=== PATIENT | female | born 1980 | race Caucasian/White ===

== ENCOUNTER → 2024-09-11 | Outpatient (CLI) | payer OTHER, SELFPAY ==
--- NOTE | 2024-09-11 12:53 | RAD_ITS ---
EXAM: XR Lumbosacral Spine, 2 or 3 Views CLINICAL INDICATION: BACK PAIN TECHNIQUE: Frontal and lateral views of the lumbar spine and sacrum. COMPARISON: No relevant prior studies available. FINDINGS: VERTEBRAE: Mild endplate degenerative changes of L3-S1. Normal alignment. No acute fracture. SACRUM/COCCYX: Unremarkable as visualized. No acute fracture. DISC SPACES: No acute findings. No significant narrowing. SOFT TISSUES: Unremarkable. RAD/Lumbar Spine 2 or 3 Views IMPRESSION: No acute fracture. Reading Location: [facility]
== END | disposition home or self-care (01) ==
LOC: MTRAD 12:53
PROVIDERS: Referring Provider Physician Assistant; Visit Provider Physician Assistant
DX: M54.9 Dorsalgia, unspecified (principal)
CPT/HCPCS: 72100

== ENCOUNTER → 2024-10-05 | Outpatient (CLI) | payer OTHER, SELFPAY ==
--- NOTE | 2024-10-05 10:10 | BI_ITS ---
EXAM: SCRN MAMM (CAD)W/KVNG BILAT DATE: 10/05/2024 CLINICAL HISTORY: F, Age 44 y/o , SCREENING BREAST CANCER RISK ASSESSMENT: Not assessed. TECHNIQUE: Bilateral screening digital breast tomosynthesis with 2D and 3D images. Computer aided detection. COMPARISON: Baseline examination. FINDINGS: TISSUE DENSITY: The breast tissue is heterogenously dense, which may obscure small masses. Bilateral Breast Mammographic Findings: No significant masses, calcifications or other abnormalities are identified. BI/SCRN MAMM (CAD)W/KVNG BILAT IMPRESSION: Right Breast: BIRADS 1 NEGATIVE. Left Breast: BIRADS 1 NEGATIVE. OVERALL FINAL ASSESSMENT: BIRADS 1 NEGATIVE RECOMMENDATION: Routine annual follow-up in 1 Year A letter with findings and recommendations will be mailed to the patient. Reading Location: [place] [id number]
[2024-10-05 10:21] LABS: Absolute Lymphocyte Count 1.53 X10^3/uL (0.83-4.51); Absolute Neutrophil Count 3.6 X10^3/uL (2.0-7.7); Basophil# 0.04 X10^3/uL; Basophil% 0.7 % (0-1); Eosinophil# 0.17 X10^3/uL; Eosinophils% 2.9 % (0-5); Hematocrit 41.4 % (37-47); Hemoglobin 14.2 g/dL (12.0-15.0); Lymphocyte # 1.53 X10^3/ul (0.83-4.51); Lymphocyte % 25.7 % (19-41); Mean Corp Hgb Conc 34.3 g/dL (32-36); Mean Corpuscular Hgb 34.5 pg (27.0-32.0); Mean Corpuscular Volume 100.5 fL (81-99); Mean Platelet Vol. 9.8 fl (6.2-12.0); Monocyte# 0.55 X10^3/uL; Monocyte% 9.2 % (0-10); NRBC Flagged by Analyzer 0 % (0-5); Neutrophil # 3.62 X10^3/uL (2.7-7.7); Neutrophil % 60.8 % (47-70); Platelet Count 198 K/mm3 (150-450); RBC Distribution Width SD 44.6 fl (35.1-43.9); Red Blood Count 4.12 M/mm3 (4.2-5.4)
[2024-10-05 10:43] LABS: ALB/GLOB Ratio 1.9 RATIO (0.9-2.4); AST(SGOT) 26 U/L (<=31); Alanine Aminotransfer ALT/SGPT 24 U/L (<=34); Albumin, Serum 4.3 g/dL (3.5-5.0); Alkaline Phosphatase 42 U/L (35-104); Anion Gap 13 (5-15); BUN 13 mg/dL (4-19); Calcium,Total 9.2 mg/dL (7.6-11.0); Carbon Dioxide 20.8 mmol/L (21.0-32.0); Chloride 105 mmol/L (98-108); Cholesterol 183 mg/dL (<=200); Creatinine, Serum 0.64 mg/dL (0.70-1.20); EST Glomerular Filtration Rate 111 (>60); Globulin 2.2 g/dL (2.2-4.2); Glucose 82 mg/dL (70-99); High Density Lipoprotein 63 mg/dL; Low Density Lipoprotein Calc. 99 mg/dL; Potassium 4.1 mmol/L (3.3-5.1); Protein, Total 6.5 g/dL (5.9-8.4); Sodium Level 139 mmol/L (133-145); Total Bilirubin 0.52 mg/dL (0.00-1.30); Triglycerides 107 mg/dL; Very Low Density Lipoprotein 21 mg/dL (5-40)
== END | disposition home or self-care (01) ==
LOC: OPBI 10:08
PROVIDERS: PCP Nurse Practitioner Family; Referring Provider Nurse Practitioner Family; Visit Provider Nurse Practitioner Family
DX: Z00.01 Encounter for general adult medical examination with abnormal findings (principal); Z12.31 Encounter for screening mammogram for malignant neoplasm of breast
CPT/HCPCS: 36415; 77063; 77067; 80053; 80061; 85025

== ENCOUNTER 2024-10-16 18:30 | Outpatient (RCR) | payer OTHER, SELFPAY ==
--- NOTE | 2024-09-18 19:48 | HP.PTEVAL ---
Patient's Visit Information Visit Information Visit Information: GARY MARQUIS is a 44 year old F referred to Physical Therapy by NAVJOT Peterson with a diagnosis of LUMBAR RADICULOPATHY. Date of Evaluation: 09/18/24 Physical Therapist: Johnson Douglas, PT, Cert MDT, OCS Visit Plan Frequency: 2x /Week Duration: 4 Weeks Plan: PT INTERVENTIONS SAM EX'S,PROGRESSION DLS ,POSTURAL EX'S ,ACTIVITY MODIFICATION ,MODALITIES AND MANUAL THERAPY Subjective Subjective: This 44 y/o female presents to physical therapy with lumbar radiculopathy. Patient has symptoms since January woke up with pain. Patient symptoms past week ,thus seen DR. Patient symptoms worse in leg. Thus seen DR recommended PT and x-rays showed Mild endplate degenerative changes of L3-S1. Medication prednisone and muscle relaxers. Patient symptoms RLS radicular symptoms in hamstrings ,calf and foot. Intermittent paresthesia/tingling in leg. Aggravating sitting ,bending,lifting .,standing WB with walking. Symptoms described as pinching shooting pain. Alleviating factors medication. Coughing/sneezing -. Pain affects sleeping . No prior treatment. Patient condition affects QOL and job demands. Patient goals to decrease symptoms. SOCIAL: SINGLE VOCATION: [employer] Pain Right Back: Pain Intensity (Out of 10): 2 Pain Intensity Range: 10 Right Lower Extremity: Pain Intensity (Out of 10): 2 Pain Intensity Range: 10 Comment: calf foot Objective Objective: POSTURE: mild forward posture GAIT: reciprocal pattern slight stance RLE NEURO: c/o paresthesia/tingling in calf ,reflexes L3-4,L4-5,L5- S1 1/3 PALAPTION: unremarkable FLEXABILITY: hamstrings min tight MMT: quads/hams 4/5 ,hip flexion 4/5 ,ankle 4/5 LUMBAR ROM: flexion min/mod loss extension min/mod loss ,side glides min loss Special Tests L/S Slump test left side: Negative L/S Slump test right side: Positive L/S Left Straight Leg Raise: Positive L/S Right Straight Leg Raise: Negative Lumbar Standing: Flexion - Mechanical Response: No effect Lumbar Standing: Flexion - Symptoms During Testing: Increases Lumbar Standing: Flexion - Symptoms After Testing: Worse Lumbar Standing: Extension - Mechanical Response: No effect Lumbar Standing: Extension - Symptoms During Testing: Centralizing Lumbar Standing: Extension - Symptoms After Testing: No better Lumbar Standing: Right Side Glides - Mechanical Response: No effect Lumbar Standing: Right Side Ryder - Symptoms During Testing: No effect Lumbar Standing: Right Side Ryder - Symptoms After Testing: No effect Lumbar Standing: Left Side Ryder - Mechanical Response: No effect Lumbar Standing: Left Side Ryder - Symptoms During Testing: No effect Lumbar Standing: Left Side Ryder - Symptoms After Testing: No effect Lumbar Lying: Flexion - Mechanical Response: No effect Lumbar Lying: Flexion - Symptoms During Testing: Increases Lumbar Lying: Flexion - Symptoms After Testing: Worse Lumbar Lying: Extension - Mechanical Response: No effect Lumbar Lying: Extension - Symptoms During Testing: Centralizing Lumbar Lying: Extension - Symptoms After Testing: Better Balance/Special Test Scores Oswestry Low Back Score: 25 Goals Goal 1:: Patient to be I with HEP for back Goal Time Frame: 4-6 Weeks Goal 2:: Patient to improve lumbar ROM for function of recovery for job demands Goal Time Frame: 4-6 Weeks Goal 3:: Patient to back oswestry score by 4 points to improve QOL and function Goal Time Frame: 4-6 Weeks Goal 4:: Patient to demonstrate 70% improvement with less pain and improved function Goal Time Frame: 4-6 Weeks Rehabilitation Potential Physical Therapy Diagnosis: This patient has derangement below knee with symptoms worse positioning and motion testing increases with sitting and flexion better with extension thus benefit from skilled PT Rehabilitation Potential: Good Anticipated Interventions Patient/Client Instruction: Educate patient on: Condition and Plan of Care For the Purpose of:: To decrease pain, To increase ROM, To improve muscle performance and motor function, To improve ability to perform ADL's, To increase tolerance to activity/condition/position, To improve ability of physical actions for home/community/work/leisure, To improve health of tissue, To decrease soft tissue restriction, To increase flexibility/ROM and To improve tolerance to ADL's Therapeutic Exercise to Include: Strength training, Body mechanics, Postural training, Flexibilty training, Dynamic Lumbar Stabilization and Sam Exercises For the Purpose of:: To decrease pain, To increase ROM, To improve muscle performance and motor function, To improve ability to perform ADL's, To increase tolerance to activity/condition/position, To improve ability of physical actions for home/community/work/leisure, To improve health of tissue, To decrease soft tissue restriction, To improve endurance and To improve tolerance to ADL's Manual Therapy Techniques to Include: Mobilization For the Purpose of:: To decrease pain, To increase ROM, To improve muscle performance and motor function, To improve ability to perform ADL's, To improve health of tissue and To decrease soft tissue restriction TENS: Yes IF ES: Yes Thermo therapy (hot pack): Yes Ultrasound (thermal/non thermal): Yes For the Purpose of:: To decrease pain, To increase ROM, To improve health of tissue and To decrease soft tissue restriction Text: Thank you for the opportunity to evaluate your patient. For Medicare and Medicare HMO plans, please review the plan of care and approve it. It will need to be FAXED BACK to us at [phone] for Medicare purposes. For Medicare only, by signing this I certify the plan of care. Please let me know if there are questions or concerns regarding this plan of care. Physician Signature: Date:
--- NOTE | 2025-01-31 08:55 | HP.PTDCSUM ---
Discharge Summary D/C summary: It has been my pleasure to treat GARY MARQUIS referred by NAVJOT Peterson, with the diagnosis of LUMBAR RADICULOPATHY for a total of 9 visit(s). Discharge Date: Please see the following information for a summary of their discharge status. Subjective Subjective: Symptoms better in leg but centralizing in back with a pitch Still on medication Naproxen Pain Right Back: Pain Intensity (Out of 10): 4 Right Lower Extremity: Pain Intensity (Out of 10): 0 Objective Objective/Function: Pain is centralized and full ROM POSTURE: mild forward posture GAIT: reciprocal pattern slight stance RLE NEURO: DENEIS paresthesia/tingling in calf ,reflexes L3-4,L4-5,L5- S1 1/3 PALAPTION: unremarkable FLEXABILITY: hamstrings min tight MMT: quads/hams 4/5 ,hip flexion 4/5 ,ankle 4/5 LUMBAR ROM: flexion WFK extension WFL ,side glides WFL loss Goals Goal 1:: Patient to be I with HEP for back Goal 2:: Patient to improve lumbar ROM for function of recovery for job demands Goal 3:: Patient to back oswestry score by 4 points to improve QOL and function Goal 4:: Patient to demonstrate 70% improvement with less pain and improved function Plan Plan: RTD D/C Information d/c sentence: If there are questions or concerns regarding this patient's physical therapy, please feel free to call me at [phone]. Thank you for the referral of this patient. Sincerely, Johnson Douglas, PT, Cert MDT, OCS Balance/Gait/Functional tests Balance/Special Test Scores Oswestry Low Back Score: 25
== END 2024-10-16 19:00 | disposition home or self-care (01) ==
LOC: PT 18:30
PROVIDERS: Referring Provider Physician Assistant; Visit Provider Physician Assistant
DX: S39.012D Strain of muscle, fascia and tendon of lower back, subsequent encounter (principal); M54.16 Radiculopathy, lumbar region
CPT/HCPCS: 97110; 97162; 97530

== ENCOUNTER → 2024-12-18 | Outpatient (CLI) | payer OTHER, SELFPAY ==
--- NOTE | 2024-12-18 07:23 | MRI_ITS ---
PROCEDURE: SPINE LUMBAR (ROUTINE) 12/18/2024 REASON FOR EXAM: LUMBOSACRAL RADICULOPATHY TECHNIQUE: MRI SPINE LUMBAR (ROUTINE) COMPARISON: Lumbar spine study 09/11/2024. FINDINGS: On sagittal images, mild multilevel lumbar degenerative disc disease is seen, also with mild L3-L4 disc space narrowing. Vertebrae: No abnormal signal is seen, and no compression is evident. Alignment: No evidence of spondylolysis or spondylolisthesis. Conus Medullaris: Normal appearance, with tip projecting at the T12 level. L1-2: Unremarkable L2-3: Mild posterior facet and ligamentum flavum hypertrophy is seen. No significant spinal canal stenosis or neural foraminal narrowing is seen. L3-4: [id number] posterior facet and ligamentum flavum hypertrophy is seen. A slight disc bulge is noted. No spinal canal stenosis or significant neural foraminal narrowing is evident. L4-5: Mild posterior facet hypertrophy is noted. A slight disc bulge is seen. No significant spinal canal stenosis or neural foraminal narrowing is evident. L5-S1: Unremarkable Sacrum: Limited imaging demonstrates no acute process. Mild sacroiliac joint degenerative changes are seen upon limited evaluation. MRI/Spine Lumbar (Routine) IMPRESSION: Mild multilevel lumbar degenerative disc disease, without significant degree of spinal canal stenosis or neural foraminal narrowing noted. Reading Location: [place] [id number]
--- OUTSIDE RECORDS SUMMARY | 2024-12-18 07:30 | XMS RPT_ITS | CCD ---
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 Name Role Phone MYKE WOOD Attending Unavailable MYKE WOOD Attending Unavailable Unavailable Primary Care Provider Unavailabl e Alex Post Attending Provider [phone] Alex Post Referring Provider Care Physician, No Primary Primary Care Provider Unavailable Patti Nash Referring Unavailable Patti Nash Attending Unavailable Saad, Patti Primary Care Unavailable Kunal Baileyolas Referring Unavailable PraOchoa madrid Attending Unavailable Saad, Patti Primary Care Unavailable Care Physician, No Primary Primary Care Unava ilAlex Lucas Referring Unavailable Alex Post Attending Unavailable Alex Post Attending Unavailable Care Physician, No Primary Primary Care Unava ilable Alex Post Referring Unavailable Alex Post Attending Unavailable Medications Current Medications Medication Drug Class(es) Dates Sig (Normalized) Sig (Original) metaxalone 800 mg oral tablet (1 source) Start: 09-11-2024 take 1 tablet by mouth three times daily as needed for pain Metaxalone 800 mg tablet Active 800 mg PO THREE TIMES A DAY as needed for muscle pain September 11, 2024 12:00am predniSONE 10 mg oral tablet (1 source) Start: 09-11-2024 take 4 tablets by mouth once daily, then take 3 tablets by mouth once daily, then take 2 tablets by mouth once daily, then take 1 tablet by mouth once daily Prednisone 10 mg tablet Active 10 mg PO DAILY September 11, 2024 12:00am 4 tablets daily x3 days, then 3 tablets daily x3 days, then 2 tablets daily x3 days, then 1 tablet daily x3 days Problems Problem Classification Problem Date Documented Da te Episodic/Chronic Abdominal pain (3 sources) Epigastric pain; Translations: [Epigastric pain] Onset: 07-19-2018 Episodic Spondylosis; intervertebral disc disorders; other back problems (5 sources) Lumbar radiculopathy; Translations: [Radiculopathy, lumbar region] Onset: 09-11-2024 09-11-2024 Episodic Sprains and strains (3 sources) Lower back injury; Translations: [Strain of muscle, fascia and tendon of lower back, initial encounter] Onset: 09-11-2024 09-11-2024 Episodic Unclassified (1 source) S39.012A - Strain of muscle, fascia and tendon of lower back, initial encounter,M54.16 - Radiculopathy, lumbar region Results Test Name Value Interpretation Reference Range Facil ity CBC W/Diff, Automatedon 09-19 Absolute Lymph 1.53 X10 3/uL Normal 0.83-4.51 [facility] Comment on above: Performed By: #### L 100.0100, L500.4050, L500.4100 #### [facility] [address] [place], [address] Absolute Neut 3.6 X10 3/uL Normal 2.0-7.7 [facility] Comment on above: Performed By: #### L 100.0100, L500.4050, L500.4100 #### [facility] [address] [place], [address] Basophils/100 WBC (Bld) 0.7 % Normal 0-1 [facility] Comment on above: Performed By: #### L 100.0100, L500.4050, L500.4100 #### [facility] [address] [place], [address] Eosinophils/100 WBC (Bld) 2.9 % Normal 0-5 [facility] Comment on above: Performed By: #### L 100.0100, L500.4050, L500.4100 #### [facility] [address] [place], [address] Erythrocyte distribution width (RBC) [Ratio] 12.0 % Normal 11.6-14.6 [facility] Comment on above: Performed By: #### L 100.0100, L500.4050, L500.4100 #### [facility] [address] [place], [address] Hematocrit (Bld) [Volume fraction] 41.4 % Normal 37-47 [facility] Comment on above: Performed By: #### L 100.0100, L500.4050, L500.4100 #### [facility] [address] [place], [address] Hemoglobin (Bld) [Mass/Vol] 14.2 g/dL Normal 12.0-15.0 [facility] Comment on above: Performed By: #### L 100.0100, L500.4050, L500.4100 #### [facility] [address] [place], [address] IG% 0.700 Normal 0.0-0.9 [facility] Comment on above: Result Comment: IG% - Immature Granulocytes (promyelocytes, myelocytes and metamyelocytes) > 1% indicates that a LEFT SHIFT is Present. Performed By: #### L 100.0100, L500.4050, L500.4100 #### [facility] [address] [place], [address] Lymphocytes/100 WBC (Bld) 25.7 % Normal 19-41 [facility] Comment on above: Performed By: #### L 100.0100, L500.4050, L500.4100 #### [facility] [address] [place], [address] MCH (RBC) [Entitic mass] 34.5 pg High 27.0-32.0 [facility] Comment on above: Performed By: #### L 100.0100, L500.4050, L500.4100 #### [facility] [address] [place], [address] MCHC (RBC) [Mass/Vol] 34.3 g/dL Normal 32-36 [facility] Comment on above: Performed By: #### L 100.0100, L500.4050, L500.4100 #### [facility] [address] [place], [address] MCV (RBC) [Entitic vol] 100.5 fL High 81-99 [facility] Comment on above: Performed By: #### L 100.0100, L500.4050, L500.4100 #### [facility] [address] [place], [address] Monocytes/100 WBC (Bld) 9.2 % Normal 0-10 [facility] Comment on above: Performed By: #### L 100.0100, L500.4050, L500.4100 #### [facility] [address] [place], [address] Neutrophils/100 WBC (Bld) 60.8 % Normal 47-70 [facility] Comment on above: Performed By: #### L 100.0100, L500.4050, L500.4100 #### [facility] [address] [place], [address] Nucleated RBC (Bld) [#/Vol] 0 10*3/uL Normal 0-5 [facility] Comment on above: Performed By: #### L 100.0100, L500.4050, L500.4100 #### [facility] [address] [place], [address] Platelet mean volume (Bld) [Entitic vol] 9.8 fL Normal 6.2-12.0 [facility] Comment on above: Performed By: #### L 100.0100, L500.4050, L500.4100 #### [facility] [address] [place], [address] Platelets (Bld) [#/Vol] 198 10*3/uL Normal 150-450 [facility] Comment on above: Performed By: #### L 100.0100, L500.4050, L500.4100 #### [facility] [address] [place], [address] RBC (Bld) [#/Vol] 4.12 10*6/uL Low 4.2-5.4 [facility] Comment on above: Performed By: #### L 100.0100, L500.4050, L500.4100 #### [facility] [address] [place], [address] RDW SD 44.6 fl High 35.1-43.9 [facility] Comment on above: Performed By: #### L 100.0100, L500.4050, L500.4100 #### [facility] [address] [place], [address] WBC (Bld) [#/Vol] 6.0 10*3/uL Normal 4.4-11.0 [facility] Comment on above: Performed By: #### L 100.0100, L500.4050, L500.4100 #### [facility] [address] [place], [address] Comprehensive Metabolic Prof [facility] 10-05-2024 Albumin [Mass/Vol] 4.3 g/dL Normal 3.5-5.0 [facility] Comment on above: Performed By: #### L 100.0100, L500.4050, L500.4100 #### [facility] [address] [place], [address] Albumin/Globulin [Mass ratio] 1.9 {ratio} Normal 0.9-2.4 [facility] Comment on above: Performed By: #### L 100.0100, L500.4050, L500.4100 #### [facility] [address] [place], [address] ALK PHOS 42 U/L Normal 35-104 [facility] Comment on above: Performed By: #### L 100.0100, L500.4050, L500.4100 #### [facility] [address] [place], [address] ALT [Catalytic activity/Vol] 24 U/L Normal <=34 [facility] Comment on above: Performed By: #### L 100.0100, L500.4050, L500.4100 #### [facility] [address] [place], [address] AST [Catalytic activity/Vol] 26 U/L Normal <=31 [facility] Comment on above: Performed By: #### L 100.0100, L500.4050, L500.4100 #### [facility] [address] [place], [address] Bilirubin [Mass/Vol] 0.52 mg/dL Normal 0.00-1.30 [facility] Comment on above: Performed By: #### L 100.0100, L500.4050, L500.4100 #### [facility] [address] [place], [address] BUN/CRE 20.0 RATIO Normal 10-20 [facility] Comment on above: Performed By: #### L 100.0100, L500.4050, L500.4100 #### [facility] [address] [place], [address] Calcium [Mass/Vol] 9.2 mg/dL Normal 7.6-11.0 [facility] Comment on above: Performed By: #### L 100.0100, L500.4050, L500.4100 #### [facility] [address] [place], [address] Chloride [Moles/Vol] 105 mmol/L Normal 98-108 [facility] Comment on above: Performed By: #### L 100.0100, L500.4050, L500.4100 #### [facility] [address] [place], [address] CO2 [Moles/Vol] 20.8 mmol/L Low 21.0-32.0 [facility] Comment on above: Performed By: #### L 100.0100, L500.4050, L500.4100 #### [facility] [address] [place], [address] Creatinine [Mass/Vol] 0.64 mg/dL Low 0.70-1.20 [facility] Comment on above: Performed By: #### L 100.0100, L500.4050, L500.4100 #### [facility] [address] [place], [address] GAP 13 Normal 5-15 [facility] Comment on above: Performed By: #### L 100.0100, L500.4050, L500.4100 #### [facility] [address] [place], [address] GFR/1.73 sq M.predicted among non-blacks MDRD (S/P/Bld) [Vol rate/Area] 111 mL/min/{1.73_m2} Normal >60 [facility] Comment on above: Result Comment: mL/m in/1.73m2 CKD-EPI Creatinine Equation (2020) Performed By: #### L 100.0100, L500.4050, L500.4100 #### [facility] [address] [place], [address] Globulin (S) [Mass/Vol] 2.2 g/dL Normal 2.2-4.2 [facility] Comment on above: Performed By: #### L 100.0100, L500.4050, L500.4100 #### [facility] [address] [place], [address] Glucose [Mass/Vol] 82 mg/dL Normal 70-99 [facility] Comment on above: Performed By: #### L 100.0100, L500.4050, L500.4100 #### [facility] [address] [place], [address] Potassium [Moles/Vol] 4.1 mmol/L Normal 3.3-5.1 [facility] Comment on above: Performed By: #### L 100.0100, L500.4050, L500.4100 #### [facility] [address] [place], [address] Sodium [Moles/Vol] 139 mmol/L Normal 133-145 [facility] Comment on above: Performed By: #### L 100.0100, L500.4050, L500.4100 #### [facility] [address] [place], [address] T PROT 6.5 g/dL Normal 5.9-8.4 [facility] Comment on above: Performed By: #### L 100.0100, L500.4050, L500.4100 #### [facility] [address] [place], [address] Urea nitrogen [Mass/Vol] 13 mg/dL Normal 4-19 [facility] Comment on above: Performed By: #### L 100.0100, L500.4050, L500.4100 #### [facility] [address] [place], [address] Lipid Profileon 10-05-2024 CHOL:HDL 2.90 Normal [facility] Comment on above: Performed By: #### L 100.0100, L500.4050, L500.4100 #### [facility] [address] [place], [address] Cholesterol [Mass/Vol] 183 mg/dL Normal <=200 [facility] Comment on above: Result Comment: Chol esterol level, Desirable <200 mg/dL Borderline high cholesterol 200-239 mg/dL High cholesterol >=240 mg/dL Recommendations of the NCEP Adult Treatment Panel for the following risk-cutoff thresholds for the [place] population. Performed By: #### L 100.0100, L500.4050, L500.4100 #### [facility] [address] [place], [address] Cholesterol in HDL [Mass/Vol] 63 mg/dL Normal [facility] Comment on above: Result Comment: Lilia onal Cholesterol Education Program (NCEP) guidelines: <40 mg/dL: Low HDL-cholesterol (major risk factor for CHD) >= 60 mg/dL: High HDL-cholesterol (negative risk factor for CHD) HDL-cholesterol is affected by a number of factors, e.g. smoking, exercise, hormones, sex and age. Performed By: #### L 100.0100, L500.4050, L500.4100 #### [facility] [address] [place], [address] Cholesterol in LDL [Mass/Vol] 99 mg/dL Normal [facility] Comment on above: Result Comment: Bord cpluzt=433-671 mg/dL Higher Jikb=405 mg/dL or greater Performed By: #### L 100.0100, L500.4050, L500.4100 #### [facility] [address] [place], [address] Cholesterol in VLDL [Mass/Vol] 21 mg/dL Normal 5-40 [facility] Comment on above: Performed By: #### L 100.0100, L500.4050, L500.4100 #### [facility] [address] [place], [address] Triglyceride [Mass/Vol] 107 mg/dL Normal [facility] Comment on above: Result Comment: The drugs N-Acetylcysteine and Metamizole may falsely depress this assay. Normal range: <150 mg/dL Borderline High: 150-199 mg/dL High: 200-499 mg/dL Very High: >500 mg/dL Performed By: #### L 100.0100, L500.4050, L500.4100 #### [facility] [address] [place], [address] SCRN MAMM (CAD)W/KVNG BILATo n 10-05-2024 SCRN MAMM (CAD)W/KVNG BILAT [facility] Imaging Services [address] [place] [address] SCRN MAMM (CAD)W/KVNG BILAT MR#: [id number] Acct: [id number] Name: GARY MARQUIS Rep #: [id number] : 1980 F 44 From: Rl bagley MD PCP: ROSALEE Garcia Status: [facility] Study: SCRN MAMM (CAD)W/KVNG BILAT Date of Exam: 09/19 01/12 Exam# [id number] Ordering Dr: Patti Nash EXAM: SCRN MAMM (CAD)W/KVNG BILAT DATE: 10/05/2024 CLINICAL HISTORY: F, Age 44 y/o , SCREENING BREAST CANCER RISK ASSESSMENT: Not assessed. TECHNIQUE: Bilateral screening digital breast tomosynthesis with 2D and 3D images. Computer aided detection. COMPARISON: Baseline examination. FINDINGS: TISSUE DENSITY: The breast tissue is heterogenously dense, which may obscure small masses. Bilateral Breast Mammographic Findings: No significant masses, calcifications or other abnormalities are identified. BI/SCRN MAMM (CAD)W/KVNG BILAT IMPRESSION: Right Breast: BIRADS 1 NEGATIVE. Left Breast: BIRADS 1 NEGATIVE. OVERALL FINAL ASSESSMENT: BIRADS 1 NEGATIVE RECOMMENDATION: Routine annual follow-up in 1 Year A letter with findings and recommendations will be mailed to the patient. Reading Location: [place] [address] CC: CATSHOVEL DRIVERAlfred Nash Project Development Director: Signed Normal [facility] Inital Evaluation (1) - PTon 09-18-2024 Inital Evaluation (1) - PT [facility] [address] [place] [address] / REHABILITATION SERVICES INITIAL EVALUATION MR#: [id number] Acct: [id number] Name: GARY MARQUIS Rep #: [id number] : 1980 44 From: Johnson Douglas PT, Cert. MD Krause, OCS Referring Dr.: NAVJOT Peterson Status: REG R CR Insurance: [facility] [id number] [place] [employer] INSURANCE Patient's Visit Information Visit Information Visit Information: GARY MARQUIS is a 44 year old F referred to Physical Therapy by NAVJOT Peterson with a diagnosis of LUMBAR RADICULOPATHY. Date of Evaluation: 09/18/24 Physical Therapist: Johnson Douglas PT, Cert LIANA, OCS Visit Plan Frequency: 2x /Week Duration: 4 Weeks Plan: PT INTERVENTIONS SAM EX'S,PROGRESSION DLS ,POSTURAL EX'S ,ACTIVITY MODIFICATION ,MODALITIES AND MANUAL THERAPY Subjective Subjective: This 44 y/o female presents to physical therapy with lumbar radiculopathy. Patient has symptoms since January woke up with pain. Patient symptoms past week ,thus seen DR. Patient symptoms worse in leg. Thus seen DR recommended PT and x-rays showed Mild endplate degenerative changes of L3-S1. Medication prednisone and muscle relaxers. Patient symptoms RLS radicular symptoms in hamstrings ,calf and foot. Intermittent paresthesia/tingling in leg. Aggravating sitting ,bending,lifting .,standing WB with walking. Symptoms described as pinching shooting pain. Alleviating factors medication. Coughing/sneezing -. Pain affects sleeping . No prior treatment. Patient condition affects QOL and job demands. Patient goals to decrease symptoms. SOCIAL: SINGLE VOCATION: [email or web address] Pain Right Back: Pain Intensity (Out of 10): 2 Pain Intensity Range: 10 Right Lower Extremity: Pain Intensity (Out of 10): 2 Pain Intensity Range: 10 Comment: calf foot Objective Objective: POSTURE: mild forward posture GAIT: reciprocal pattern slight stance RLE NEURO: c/o paresthesia/tingling in calf ,reflexes L3-4,L4-5,L5- S1 1/3 PALAPTION: unremarkable FLEXABILITY: hamstrings min tight MMT: quads/hams 4/5 ,hip flexion 4/5 ,ankle 4/5 LUMBAR ROM: flexion min/mod loss extension min/mod loss ,side glides min loss Special Tests L/S Slump test left side: Negative L/S Slump test right side: Positive L/S Left Straight Leg Raise: Positive L/S Right Straight Leg Raise: Negative Lumbar Standing: Flexion - Mechanical Response: No effect Lumbar Standing: Flexion - Symptoms During Testing: Increases Lumbar Standing: Flexion - Symptoms After Testing: Worse Lumbar Standing: Extension - Mechanical Response: No effect Lumbar Standing: Extension - Symptoms During Testing: Centralizing Lumbar Standing: Extension - Symptoms After Testing: No better Lumbar Standing: Right Side Glides - Mechanical Response: No effect Lumbar Standing: Right Side [place] - Symptoms During Testing: No effect Lumbar Standing: Right Side [place] - Symptoms After Testing: No effect Lumbar Standing: Left Side [place] - Mechanical Response: No effect Lumbar Standing: Left Side [place] - Symptoms During Testing: No effect Lumbar Standing: Left Side [place] - Symptoms After Testing: No effect Lumbar Lying: Flexion - Mechanical Response: No effect Lumbar Lying: Flexion - Symptoms During Testing: Increases Lumbar Lying: Flexion - Symptoms After Testing: Worse Lumbar Lying: Extension - Mechanical Response: No effect Lumbar Lying: Extension - Symptoms During Testing: Centralizing Lumbar Lying: Extension - Symptoms After Testing: Better Balance/Special Test Scores Oswestry Low Back Score: 25 Goals Goal 1:: Patient to be I with HEP for back Goal Time Frame: 4-6 Weeks Goal 2:: Patient to improve lumbar ROM for function of recovery for job demands Goal Time Frame: 4-6 Weeks Goal 3:: Patient to back oswestry score by 4 points to improve QOL and function Goal Time Frame: 4-6 Weeks Goal 4:: Patient to demonstrate 70% improvement with less pain and improved function Goal Time Frame: 4-6 Weeks Rehabilitation Potential Physical Therapy Diagnosis: This patient has derangement below knee with symptoms worse positioning and motion testing increases with sitting and flexion better with extension thus benefit from skilled PT Rehabilitation Potential: Good Anticipated Interventions Patient/Client Instruction: Educate patient on: Condition and Plan of Care For the Purpose of:: To decrease pain, To increase ROM, To improve muscle performance and motor function, To improve ability to perform ADL's, To increase tolerance to activity/condition/po sition, To improve ability of physical actions for home/community/work/l eisure, To improve health of tissue, To decrease soft tissue restriction, To increase flexibility/ROM and To improve tolerance to ADL's Therapeutic Exercise to Include: Strength training, Body mechanics, Postural trainin (more content not included)... Normal [facility] Lumbar Spine 2 or 3 Viewson 09-11-2024 Lumbar Spine [address] [facility] Imaging Services [address] [place] [address] Lumbar Spine 2 or 3 Views MR#: [id number] Acct: [id number] Name: GARY MARQUIS Rep #: [id number] : 1980 F 44 From: Carson Argueta MD PCP: Care Physician,No Primary Status: REG CLI Study: Lumbar Spine 2 or 3 Views Date of Exam: Exam# [id number] Ordering Dr: Alex Lantigua EXAM: XR Lumbosacral Spine, 2 or 3 Views CLINICAL INDICATION: BACK PAIN TECHNIQUE: Frontal and lateral views of the lumbar spine and sacrum. COMPARISON: No relevant prior studies available. FINDINGS: VERTEBRAE: Mild endplate degenerative changes of L3-S1. Normal alignment. No acute fracture. SACRUM/COCCYX: Unremarkable as visualized. No acute fracture. DISC SPACES: No acute findings. No significant narrowing. SOFT TISSUES: Unremarkable. RAD/Lumbar Spine 2 or 3 Views IMPRESSION: No acute fracture. Reading [facility] CC: No Primary Care Physician; NAVJOT Peterson Project Development Director: Signed Normal [facility] Visit Reporton 0 09-11-2024 Urgent Care Visit Report [facility] [address] [place] [address] OFFICE VISIT Date of Service: 09/11/24 MR#: [id number] Acct: [id number] Name: GARY MARQUIS Rep #: [id number] : 1980 Provider: NAVJOT Peterson Age/Sex: 44/F Location: [facility] Status: Signed Intake Vital Signs 09/11/24 12:46 BP 120/78 Blood Pressure Location Lt brachial Position Sitting Respiration 14 Pulse 88 Pulse Source NIBP Temp 97.9 F Temp Source Oral Pulse Oximetry (%) 97 Oxygen Delivery Method room air Intake Visit Reasons: R SIDE BACK PAIN FEELS LIKE PINCHED NERVE Chief Complaint: right low back pain [employer] 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 feels like pinching per pt. denies injury, trauma, surgery. drove for extended time yesterday, when complete right foot was numb and back soreness. today s/s worsened. hx intermittent back pain which could be resolved with stretches. [facility] Medical History (Updated 09/11/24 @ 13:17 by Alex MORFIN, PA) Lumbar radiculopathy Acute lumbar myofascial strain HPI HPI Chief Complaint: right low back pain Details: GARY MARQUIS, is a 44 F who presents to the office today for initial evaluation approximately 7-month history of chronic low back pain (right more so than left) Sharmin noted in etiology as patient notes no history of fall or trauma to the same. She notes the pain was tolerable as she was doing home stretches though noticed last evening after sitting for extended period developing moderate severe aching right low back pain with paresthesias to the right lateral thigh. She notes localized pain to her low back is aggravated to touch which exacerbates her right lateral thigh paresthesias. She has taken [id number] products to assist. She notes no caudal complaints upon questioning. She notes no other associated symptoms and no other alleviating/aggravati ng factors. ROS Const Constitutional: No other (as above) Exam Const General: cooperative, healthy appearing and no acute distress Orientation: alert and awake Chest Chest palpation inspection: normal inspection of the chest Resp Effort Inspection: normal respiratory effort and able to speak in complete sentences Cardio Rate: regular rate Pulses: radial pulses present GI Inspection: normal to inspection Musc Thoracic/Lumbar Spine: thoracic and lumbar spine normal to inspection, No surgical scar(s) present, pain with thoraco-lumbar ROM with forward flexion (As well as extension), with lateral flexion to the right and with rotation to the right, paraspinal tenderness on the right greater than left (lower lumbar) and straight leg raise positive (right only) Other: Negative heel toe walk, negative great toe extension to resistance, +2/4 bilateral patellar and Achilles reflexes. Skin General: no rashes or lesions noted Neuro General: patient alert, patient awake, patient oriented x3 and gait normal Cognition: normal cognition Speech: speech normal Gait: normal gait Motor: muscle tone normal throughout Sensory Exam: no sensory deficits noted (Except right lateral thigh paresthesias to palpation) Psych Appearance: grossly normal Mental Status: mental status grossly normal Mood: congruent mood Affect: normal affect Speech and Movement: speech and movement normal Attitude: cooperative Coding Level of Care Code Off vis,new,level 4 Diagnoses Acute lumbar myofascial strain S39.012A Lumbar radiculopathy M54.16 Assessment and Plan Assessment and Plan (1) Acute lumbar myofascial strain: Status: Acute (2) Lumbar radiculopathy: Status: Acute Plan: LS-spine radiographs taken today revealed no acute osseous pathology or listhesis the slight loss of normal lordotic curve, with radiologist interpretation pending at the time patient discharge. Rest, ice applications, home range of motion exercises as instructed today. Order for physical therapy given to evaluate and treat. Prednisone and metaxalone as prescribed today. Follow-up with PCP or orthopedics in 10 to 14 days after initiating physical therapy if no improvement, sooner should symptoms only worsen or any other concerns develop. Patient states acknowledging understanding all the above. This note was generated with [employer] dictation software. It may contain incorrect words, spelling, and punctuation that were not noted in checking the note before signing. Orders: Orders Lumbar Spine 2 or 3 Views Today M54.9 - Dorsalgia, unspecified Referrals PT Referral M54.16 - Radiculopathy, lumbar (more content not included)... Normal [facility] Basic Panelon 07-19-2018 Anion gap molar conc 16 mmol/L Normal 8-16 [facility] Comment on above: Performed By: #### M P8 #### [place] [address] Calcium mass conc 9.6 mg/dL Normal 8.5-10.1 [facility] Comment on above: Performed By: #### M P8 #### [facility] [address] [place] [address] Chloride molar conc 100 mmol/L Normal 98-107 [facility] Comment on above: Performed By: #### M P8 #### [facility] [address] [place] [address] CO2 Blood 25 mEq/L Normal 21-32 [facility] Comment on above: Performed By: #### M P8 #### [facility] [address] [place] [address] Creatinine mass conc 0.81 mg/dL Normal 0.51-0.95 [facility] Comment on above: Performed By: #### M P8 #### [facility] [address] [place] [address] Glucose mass conc 127 mg/dL High 70-99 [facility] Comment on above: Performed By: #### M P8 #### [facility] [address] [place] [address] Potassium molar conc 3.9 mmol/L Normal 3.5-5.1 [facility] Comment on above: Performed By: #### M P8 #### [facility] [address] [place] [address] Sodium molar conc 137 mmol/L Normal 136-145 [facility] Comment on above: Performed By: #### M P8 #### [facility] [address] [place] [address] Urea nitrogen mass conc 14 mg/dL Normal 7-18 [facility] Comment on above: Performed By: #### M P8 #### [facility] [address] [place] [address] [address] ABDOMEN AND PELVIS WITH C ONTRAST [id number] 07-19-2018 CT ABDOMEN AND PELVIS WITH CONTRAST [id number] Performed at [facility] APPROVED BY: Karthik Lara MD EXAMINATION: CT ABDOMEN AND PELVIS WITH IV CONTRAST CLINICAL HISTORY: The patient presents with mid abdominal pain. TECHNIQUE: CT of the abdomen and pelvis was performed using standard technique, scanning from just above the dome of the diaphragm to the symphysis pubis. MQ: CTAP_3 CT Dose-Length Product: 686 mGy*cm CT Dose Reduction Employed: 1. Automated exposure control (AEC) was used. COMPARISON: None. RESULT: Liver: No mass. Biliary: No bile duct dilation. Spleen: No mass. No splenomegaly. Pancreas: No mass or duct dilation. Adrenals: No mass. Kidneys: Enhance symmetric. No hydronephrosis or hydroureter. No renal masses are noted. GI tract: No dilation or wall thickening. Appendix is not visualized, reportedly surgically absent. Lymph nodes: No abdominal or pelvic lymphadenopathy. Mesentery/Peritoneum: No ascites or mass. Retroperitoneum: No mass. Vasculature: The celiac axis and SMA are patent. The portal vein and branches, splenic vein, SMV, and hepatic veins are patent. No abdominal aortic or iliac artery aneurysm. Pelvis: No mass, ascites or fluid collection. Status post hysterectomy. Bones/Soft Tissues: There is no acute bony abnormality. There are tiny ventral hernias in the left periumbilical and left lateral abdominal wall regions containing only mesenteric fat. Possible small lipoma of the left rectus abdominis musculature. Lower thorax: Minimal dependent bibasilar atelectasis. IMPRESSION: No acute process identified within the abdomen or pelvis. Tiny ventral hernias in the left periumbilical and left lateral abdominal wall regions containing only mesenteric fat. Possible small lipoma of the left rectus abdominis musculature. Status post appendectomy and hysterectomy. [facility] ED NOTEon 07-19-2018 ED NOTE HNO ID: [id number] Author: Liv Lezama) WILLIAMS Candelario Service: (none) Author Type: Registered Nurse Type: ED Notes Filed: 07/19/2018 7:07 AM Note Text: Report given to Yeimi KRAMER. Care transferred. Normal [facility] ED NOTE HNO ID: [id number] Author: Yeimi CrowleyRn) WILLIAMS Miller Service: Emergency Medicine Author Type: Registered Nurse Type: ED Notes Filed: 07/19/2018 7:38 AM Note Text: Pt care assumed. Report received. Pt resting quietly. Decreased pain after ivp pain med given. abd soft with BS X4. To ct for films. NPO. [facility] ED NOTE HNO ID: [id number] Author: Liv Lezama) WILLIAMS Candelario Service: (none) Author Type: Registered Nurse Type: ED Notes Filed: 07/19/2018 6:32 AM Note Text: Pt presents to ER with acute onset of epigastric pain that started last night at 1900. Pt states she took Tylenol and put ICY hot and ice and had no relief. Pt nauseated but no vomiting. - Diarrhea. Pt states yesterday she had frequent urination which was unusual for pt but she had no other associated symptoms with that and today denies any issues. Pt also fell twice over the weekend on ice and has large ecchymotic area to right buttocks. Pt denies any LOC. Pt tearful during triage. Rates pain /10. RR even and unlabored. Skin warm and dry. Family present with pt. Call light in reach. Normal [facility] ED PROV NOTEon 07-19-2018 Protein mass conc HNO ID: [id number] Author: Ricardo Walton Service: Emergency Medicine Author Type: Physician Type: ED Provider Notes Filed: 07/19/2018 10:42 AM Note Text: Patient was signed out to me by the outgoing emergency medicine physician. We discussed patient's presentation, clinical course, and treatment plan. Patient presented to the emergency department with abdominal pain in the epigastric area starting last night. I was asked to follow-up on laboratory studies and CT scan of the abdomen and pelvis which was ordered. Patient has had stable vital signs in the emergency department. Her symptoms were treated with Dilaudid which did initially help her pain. Laboratory studies show mild leukocytosis but are otherwise unremarkable. LFTs and bilirubin are normal. Lipase is normal. On my evaluation of the patient she has a mild amount of tenderness in the epigastric region of the abdomen. She has no right upper quadrant tenderness and a negative Ernteria sign. I did provide her a GI cocktail. This did help her symptoms. Patient is feeling better. I believe she is safe for discharge at this time. She will be given prescriptions for Zofran, Bentyl, omeprazole. She does not have a primary care physician and she was given access point for follow-up. She was also provided the [facility] primary care referral line. We did discuss in detail what symptoms would indicate the need to return to the emergency department. I explained to the patient what symptoms would indicate the need to return to the Emergency Department. Shared decision making was used. The patient voiced understanding of treatment plan and is agreeable with it. Patient was instructed to follow-up with their primary care physician. Ricardo Walton 07/19/18 1042 Normal [facility] Protein mass conc HNO ID: [id number] Author: Myke Wood MD Service: Emergency Medicine Author Type: Physician Type: ED Provider Notes Filed: 07/20/2018 12:25 AM Note Text: Patient is ED Provider Note Patient Name: Gary Marquis SERVICE DATE: 07/19/18 History Patient presents with: Abdominal Pain: epigastric pain that started last pm at 1900. +nausea. Fall: pt fell 2 times on ice- 1 Wednesday, 1 Wednesday -LOC. Patient is a 37-year-old white female that noted epigastric abdominal pain that radiated to the back at around 7 PM. She states that it didn't start after a meal. It caused her nausea but no vomiting. She has been passing gas and having bowel movements. She's never had pain like this before. She describes it as sharp and stabbing and currently 9 out of 10 on a pain scale. She took Tylenol and put icy hot on the area as well as ice and had no relief. She's had no diarrhea. She states that yesterday she had urinary frequency but no other symptoms. Over the weekend she fell twice on the ice and has bruising to the right buttocks. She's had no fevers or chills. She has had her appendix removed, 2 C-sections, and a hysterectomy. She's never had a bowel obstruction or a gallbladder issue before. PAST MEDICAL HISTORY Diagnosis Date - Endometriosis - Hx of blood clots Pt states she had a large blood clot after her hysterectomy PAST SURGICAL HISTORY Procedure Laterality Date - APPENDECTOMY - DELIVERY ONLY x2 - HYSTERECTOMY HX 2013- full hysterectomy - L'SCOPE DX W/WO BRUSHINGS/WASHINGS Laparoscopy - TOTAL ABDOM HYSTERECTOMY Hysterectomy, ALBERTO FAMILY HISTORY Problem Relation Age of Onset - other (lymphoma [Other]) Mother - other (melonoma [Other]) Father - other (throat cancer [Other]) Maternal Grandmother - other (throat cancer [Other]) Paternal Grandmother - other (lung cancer [Other]) Paternal Aunt - other (lung cancer [Other]) Paternal Uncle - Stroke Father mild stroke - Stroke Maternal Grandmother - Stroke Paternal Grandmother - Hypertension Mother - Hypertension Father - Thyroid Father Social History Social History Main Topics - Smoking status: Current Every Day Smoker Packs/day: 0.50 Years: 20.00 Types: Cigarettes - Smokeless tobacco: Never Used - Alcohol use Yes Comment: occ - Drug use: No - Sexual activity: Yes control/ protection: Surgical Comment: HYST ALLERGIES No Known Allergies Review of Systems All other systems reviewed and are negative. Physical Exam BP 157/96 Pulse 65 Temp 97.2 Resp 16 Ht 5' 6 (1.68m) Wt 165 lb (74.8kg) SpO2 98% BMI 26.64 kg/(m2). Physical Exam Constitutional: She is oriented to person, place, and time. She appears well-developed and well-nourished. Patient appears to be in severe amount of distress secondary to pain and she is tearful. HENT: Head: Normocephalic and atraumatic. Eyes: Pupils are equal, round, and reactive to light. EOM are normal. Neck: Normal range of motion. Neck supple. Cardiovascular: Normal rate, regular rhythm, normal heart sounds and intact distal pulses. Pulmonary/Chest: Effort normal and breath sounds normal. Abdominal: Soft. Bowel sounds are normal. Patient has no pulsatile masses on exam. She is moderately to severely tender in the epigastrium. Musculoskeletal: Normal range of motion. She exhibits no edema. Neurological: She is alert and oriented to person, place, and time. Skin: Skin is warm and dry. Psychiatric: She has a normal mood and affect. Her behavior is normal. Nursing note and vitals reviewed. Diagnostic Testing ED Labs Ordered and Reviewed CBC + AUTO DIFF (AK,AV,EU,FV,HL,KOMAL,MM ,SP) - Abnormal; Notable for the following: Result Value Ref Range WBC 11.7 (*) 4.4 - 9.7 thou/cmm HGB 14.9 (*) 11.7 - 14.7 g/dL Hematocrit 43.9 (*) 34.7 - 43.3 % RDW 11.6 (*) 11.8 - 14.5 % Abs. Neut(Anc) 8.88 (*) 1.35 - 7.21 thou/cmm All other components within normal limits BASIC METABOLIC PANEL (AK,AV,EU,FV,HL,KOMAL,MM ,SP) MDRD GFR LIPASE BLOOD (EU,FV,HL,KOMAL,MM,SP) HEPATIC FUNCTION PANEL (EU,FV,HL,KOMAL,MM,SP) URINALYSIS WITH MICROSCOPIC (AK,AV,EU,FV,HL,KOMAL,MM ,SP) Procedures ED Course / Clinical Impression Clinical Impressions as of Jul 20 22 Epigastric pain MDM / Disposition / Plan Considerations were given to gastritis, pancreatitis, cholelithiasis/cholec ystitis. An IV was established and labs were drawn. She was given a liter normal saline bolus, Dilaudid 1 mg IV push, Zofran 4 mg IV push, and she was sent for CT scan of the abdomen and pelvis with IV contrast. Patient was endorsed to Dr. Walton pending return of labs and CT. SIGNATURE: MD Myke Costa MD 07/20/18 0025 Normal [facility] Hemogram/Diffon 07-19-2018 Abs. Baso 0.02 thou/cmm Normal 0.00-0.08 [facility] Comment on above: Performed By: #### N CBCD #### [address] [address] Abs. [place] 0.74 thou/cmm Normal 0.19-0.80 [facility] Comment on above: Performed By: #### N CBCD #### [address] [address] Abs. Neut (ANC) 8.88 thou/cmm High 1.35-7.21 [facility] Comment on above: Performed By: #### N CBCD #### [address] [address] Basophils/100 WBC (Bld) 0.2 % Normal [facility] Comment on above: Performed By: #### N CBCD #### [address] [address] Eosinophils #/vol (Bld) 0.08 thou/cmm Normal 0.00-0.36 [facility] Comment on above: Performed By: #### N CBCD #### [address] [address] Eosinophils/100 WBC (Bld) 0.7 % Normal [facility] Comment on above: Performed By: #### N CBCD #### [place] [address] Erythrocyte distribution width Ratio (RBC) 11.6 % Low 11.8-14.5 [facility] Comment on above: Performed By: #### N CBCD #### [place] [address] Hematocrit Volume Fraction (Bld) 43.9 % High 34.7-43.3 [facility] Comment on above: Performed By: #### N CBCD #### [place] [address] Hemoglobin mass conc (Bld) 14.9 g/dL High 11.7-14.7 [facility] Comment on above: Performed By: #### N CBCD #### [place] [address] Lymphocytes #/vol (Bld) 1.97 thou/cmm Normal 0.68-2.93 [facility] Comment on above: Performed By: #### N CBCD #### [place] [address] Lymphocytes/100 WBC (Bld) 16.8 % Normal [facility] Comment on above: Performed By: #### N CBCD #### [place] [address] MCH Entitic mass (RBC) 32.7 pg Normal 27.4-32.8 [facility] Comment on above: Performed By: #### N CBCD #### [place] [address] MCHC mass conc (RBC) 33.9 % Normal 31.9-35.6 [facility] Comment on above: Performed By: #### N CBCD #### [place] [address] MCV Entitic volume (RBC) 96.3 fL Normal 82.1-97.4 [facility] Comment on above: Performed By: #### N CBCD #### [facility] [address] [place] [address] Monocytes/100 WBC (Bld) 6.3 % Normal [facility] Comment on above: Performed By: #### N CBCD #### [facility] [address] [place] [address] Platelet mean volume Entitic volume (Bld) 9.5 fL Normal 8.8-12.1 [facility] Comment on above: Performed By: #### N CBCD #### [facility] [address] [place] [address] Platelets #/vol (Bld) 210 thou/cmm Normal 150-370 [facility] Comment on above: Performed By: #### N CBCD #### [facility] [address] [place] [address] RBC #/vol (Bld) 4.56 mil/cmm Normal 3.79-4.93 [facility] Comment on above: Performed By: #### N CBCD #### [place] [address] Seg Neutrophil 76.0 % Normal [facility] Comment on above: Performed By: #### N CBCD #### [facility] [address] [place] [address] WBC #/vol (Bld) 11.7 thou/cmm High 4.4-9.7 [facility] Comment on above: Performed By: #### N CBCD #### [place] [address] Hepatic Panelon 07-19-2018 Albumin mass conc 4.1 g/dL Normal 3.4-5.0 [facility] Comment on above: Performed By: #### M HEPA #### [facility] [address] [place] [address] ALP enzyme act/vol 59 U/L Normal 46-116 [facility] Comment on above: Performed By: #### M HEPA #### [place] [address] ALT-SGPT Blood 34 U/L Normal 12-78 [facility] Comment on above: Performed By: #### M HEPA #### [facility] [address] [place] [address] AST-SGOT Blood 22 U/L Normal 15-46 [facility] Comment on above: Performed By: #### M HEPA #### [facility] [address] [place] [address] Bilirubin Ql (U) 0.5 mg/dL Normal 0.2-1.0 [facility] Comment on above: Performed By: #### M HEPA #### [facility] [address] [place] [address] Bilirubin.direct mass conc 0.10 mg/dL Normal 0.00-0.20 [facility] Comment on above: Performed By: #### M HEPA #### [facility] [address] [place] [address] Protein mass conc 7.0 g/dL Normal 6.4-8.2 [facility] Comment on above: Performed By: #### M HEPA #### [facility] [address] [place] [address] Lipase Bloodon 07-19-2018 Lipase Blood 113 U/L Normal 73-393 [facility] Comment on above: Performed By: #### M LIP #### [facility] [address] [place] [address] MDRD eGFRon 07-19-2018 GFR/1.73 sq M predicted among non-blacks MDRD vol rate/area (S/P/Bld) mL/min/{1.73_m2} Normal >60mL/min/1.73m 2 [facility] Comment on above: Result Comment: If t he patient is , multiply the result by 1.210. Performed By: #### M GFR #### [facility] [address] [place] [address] Urinalysis Routineon 019 Amorphous Phosphates MANY Abnormal None [facility] Comment on above: Performed By: #### M URIN #### [facility] [address] [place] [address] Appearance Nom (U) 4+ (TURBID) Normal [facility] Comment on above: Performed By: #### M URIN #### [facility] [address] [place] [address] Color Nom (U) YELLOW Normal [facility] Comment on above: Performed By: #### M URIN #### [facility] [address] [place] [address] Ep Cells Urine 13-20 Normal 0-5 [facility] Comment on above: Performed By: #### M URIN #### [facility] [address] [place] [address] RBC LM.HPF #/area (Urine sed) NONE Normal 0-3 [facility] Comment on above: Performed By: #### M URIN #### [facility] [address] [place] [address] WBC LM.HPF #/area (Urine sed) NONE Normal 0-5 [facility] Comment on above: Performed By: #### M URIN #### [facility] [address] [place] [address] Bilirubin Urine Negative Normal Negative [facility] Comment on above: Performed By: #### M URIN #### [facility] [address] [place] [address] Glucose Ql (U) Negative Normal Negative [facility] Comment on above: Performed By: #### M URIN #### [facility] [address] [place] [address] Hemoglobin,Urine Negative Normal Negative [facility] Comment on above: Performed By: #### M URIN #### [facility] [address] [place] [address] Ketone Urine Negative Normal Negative [facility] Comment on above: Performed By: #### M URIN #### [facility] [address] [place] [address] Leukocytes Esterase Negative Normal Negative [facility] Comment on above: Performed By: #### M URIN #### [place] [address] Nitrites Urine Negative Normal Negative [facility] Comment on above: Performed By: #### M URIN #### [facility] [address] [place], [place] [address] pH (U) 8.0 [pH] Normal 5.0-8.0 [facility] Comment on above: Performed By: #### M URIN #### [facility] [address] [place], [place] [address] Protein mass conc (U) Negative Normal Negative [facility] Comment on above: Performed By: #### M URIN #### [facility] [address] [place] [address] Specific Benedict, Ur 1.020 Normal 1.005-1.030 [facility] Comment on above: Performed By: #### M URIN #### [facility] [address] [place] [address] Urobilinogen,Ur 0.2 EU/dL Normal 0.0-1.0 [facility] Comment on above: Performed By: #### M URIN #### [facility] [address] [place] [address] Otheron 07-09-2008 CONVERTED CLINICAL HISTORY OPERATIVE PROCEDURE: D&C V hysteroscopy, Yag laser lap CLINICAL INFORMATION: Menorrhagia, pelvic pain [facility] CONVERTED FINAL DIAGNOSIS FINAL DIAGNOSIS: UTERUS, CURETTAGE - SECRETORY PHASE ENDOMETRIUM. STROMAL BREAKDOWN AND HEMORRHAGE. SPECIMEN: ENDOMETRIAL CURETTINGS [facility] CONVERTED GROSS DESCRIPTION GROSS DESCRIPTION: Endometrial curettings The specimen is labeled endometrial curettings. Received are portions of soft red-sawyer curettage material measuring 1.3 cm in aggregate diameter. The specimen is totally submitted in a single cassette. SDS/[facility]/lrs MICROSCOPIC DESCRIPTION: Slides reviewed. SDS/lrs [facility] CONVERTED ORDERING PROVIDER Ordering Provider: RM LOCKHART [facility] Thyroidon 07-09-2008 TSH Dell CHOW M.D., PATHOLOGIST (Electronic signature on file) Final Signed Out: 07/09/2008 13:22 [facility] 1999 CONVERTED FINAL DIAGNOSIS LEFT AXILLARY MASS, EXCISION - BENIGN BREAST TISSUE WITH FIBROCYSTIC CHANGE. COMMENT - Fibrocystic change consists of prominent fibrosis. There is no evidence of malignancy. [facility] CONVERTED ORDERING PROVIDER Ordering Provider: KARTHIK NANCE [facility] Thyroidon 1999 [facility] Dell CHOW M.D., PATHOLOGIST (Electronic signature on file) Final Signed Out: 1999 15:07 [facility] Vital Signs Date Time Vital Sign Value Performing Clinician Mliviai jackie 09-11-2024 12:46-0400 Body temperature 97.9 [degF] Alex MORFIN Work Phone: [facility] 09-11-2024 12:46-0400 Diastolic blood pressure 78 mm[Hg] Alex MORFIN Work Phone: [facility] 09-11-2024 12:46-0400 Heart rate 88 /min Alex MORFIN Work Phone: [facility] 09-11-2024 12:46-0400 Respiratory rate 14 /min Alex MORFIN Work Phone: [facility] 09-11-2024 12:46-0400 SaO2% (BldA) [Mass fraction] 97 % Alex MORFIN Work Phone: [facility] 09-11-2024 12:46-0400 Systolic blood pressure 120 mm[Hg] Alex MORFIN Work Phone: [facility] Encounters Encounter Date Encounter Type Care Provider Facility Start: 12-18-2024 ambulatory Ochoa Duenas ty:[facility] Start: 10-16-2024 ambulatory No Primary Car e Physician Facility:[facility] Start: 10-11-2024 Encounter for genera l adult medical examination with abnormal findings Patti [facility] Start: 10-05-2024 End: 10-05-2024 ambulatory [facility] Facility:[facility] Start: 09-11-2024 End: 09-11-2024 Patient encounter procedure Alex MORFIN [facility] Work Phone: Start: 09-11-2024 End: 09-11-2024 ambulatory Alex MORFIN Work Phone: [facility] Work Phone: Start: 09-11-2024 End: 09-11-2024 ambulatory No Primary Care Physician Facility:[facility] Start: 07-19-2018 End: 07-19-2018 Emergency department patient visit MYKE WOOD [facility] Start: 07-06-2008 End: 07-06-2008 Patient encounter procedure Rm Lockhart Work Phone: [facility] Start: 07-06-2008 Results Only Rm Lockhart Work Phone: [facility] Start: 07-25-1999 End: 07-25-1999 Patient encounter procedure Karthik Nance Work Phone: [facility] Start: 07-25-1999 Results Only Karthik Nance Work Phone: [facility] Procedures Date Procedure Procedure Detail Performing Clinician Start: 09-11-2024 X-ray of lumbar spin e, two or three views Alex MORFIN Work Phone: Start: 07-06-2008 CONVERTED SURGICAL PATHOLOGY Rm Lockhart Work Phone: Start: 07-25-1999 CONVERTED SURGICAL PATHOLOGY Karthik Nance Work Phone: Plan of Treatment Date Care Activity Detail Author Start: 09-11-2024 Patient referral [facility] Work Phone: Start: 02-20-2020 Influenza vaccination INFLUENZA (#1) [facility] Start: 2019 Mammography MAMMOGRAM [facility] Start: 2009 HPV TESTING HPV TESTING [facility] Start: 2000 PAP TESTING PAP TESTING [facility] Start: 1998 Urine microalbumin profile DTAP,TDAP,TD (1 - Tdap) [facility] Start: 1997 HEPATITIS C SCREENING HEPATITIS C SC REEOLIVER [facility] Start: 1997 HIV SCREENING HIV SCREENING [facility] Patient referral [facility] Work Phone: Payers Date Payer Category Payer Self-pay 2024 Unknown [id number] 1980 Unknown [id number] 2.16.8 [id number] Unknown [id number] 2.16.8 [id number] Unknown [id number] 2.16.8 [id number] Unknown [id number] 2.16.8 [id number] Unknown [id number] 2.16.8 [id number] Unknown [id number] 2.16.8 [id number] Social History Date Type Detail Facility [facility] [place] if ever smoked [facility] Sex Assigned At Not on file [facility] Tobacco [facility] stat [facility] [place] Unknown if ever smoked [facility] Work Phone: Start: 09-18-2024 Sex Female (finding) [facility] Start: 1980 Sex Assigned At Female [facility] Evaluation note 09-11-2024 Note Date & Type Note Facility 09-11-2024 Evaluation note Diagnosis Onset Date Resolution Acute lumbar myofascial strain acute September 11, 2024 12:40pm Lumbar radiculopathy acute 2024 12:40pm [facility] Work Phone: Radiology Diagnostic study note 09-11-2024 Note Date & Type Note Facility 09-11-2024 Rad[address] Diagnostic study note [facility] Imaging Services [address] [place], [place] [id number] Lumbar Spine 2 or 3 Views MR#: [id number] Acct: [id number] Name: GARY MARQUIS Rep #: [id number] : 1980 F 44 From: Saadia Argueta MD PCP: Care Physician,No Primary Status: REG CLI Study:Lumbar Spine 2 or 3 Views Date of Exam: 09/11/24 Exam# [id number] Ordering Dr: [facility] iris Lantigua PA EXAM: XR Lumbosacral Spine, 2 or 3 Views CLINICAL INDICATION: BACK PAIN TECHNIQUE: Frontal and lateral views of the lumbar spine and sacrum. COMPARISON: No relevant prior studies available. FINDINGS: VERTEBRAE: Mild endplate degenerative changes of L3-S1. Normal alignment. No acute fracture. SACRUM/COCCYX: Unremarkable as visualized. No acute fracture. DISC SPACES: No acute findings. No significant narrowing. SOFT TISSUES: Unremarkable. RAD/Lumbar Spine 2 or 3 Views IMPRESSION: No acute fracture. 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 Advance Directive(s) 07/19/2018 6:34 AM Chief Complaint and Reason for Visit Chief Complaint Admit Date R SIDE BACK PAIN FEELS LIKE PINCHED NERV E September 11, 2024 12:40pm back pain- EORDER September 11, 2024 12: 51pm Reason for Visit Admit Date Acute lumbar myofascial strain August 12:40pm Lumbar radiculopathy September 11, 2024 12 :40pm Additional Source Comments INFORMATION SOURCE (unrecogn ized section and content) DATE CREATED AUTHOR 08/03/2018 [facility] DATE CREATED AUTHOR AUTHOR'S ORGANIZ ATION 08/09/2018 [facility] DATE CREATED AUTHOR AUTHOR'S ORGANIZ ATION 12/10/2024 [facility] Source Comments (unrecognize d section and content) In the event this informatio n is protected by the Federal Confidentiality of Alcohol and Drug Abuse Patient Records regulations: The Federal rules restrict any use of the information to criminally investigate or prosecute any alcohol or drug abuse patient.[facility] the event this information is protected by the Federal Confidentiality of Alcohol and Drug Abuse Patient Records regulations: The Federal rules restrict any use of the information to criminally investigate or prosecute any alcohol or drug abuse patient.[facility] Care Teams (unrecognized sec tion and content) Team Status: Active Member Role Status Dates No Primary Care Physician Primary Care Provider Active Team Status: Inactive Member Role Status Dates NAVJOT Alonzo Attending Provider Active Start: September 11, 2024 End: September 11, 2024 Team Status: Inactive Member Role Status Dates NAVJOT Alonzo Attending Provider Active Start: September 11, 2024 End: September 11, 2024 NAVJOT Alonzo Referring Provider Active Start: September 11, 2024 End: September 11, 2024 No Primary Care Physician Primary Care Provider Active Start: September 11, 2024 End: September 11, 2024 Goals (unrecognized section and content) Goals may be documented in a n alternate section FOR RECORDS PERTAINING TO PATIENTS WHO ARE OR HAVE BEEN ENROLLED IN A CHEMICAL DEPENDENCY/SUBSTANCEABUSE PROGRAM, SOME INFORMATION MAY BE OMITTED. This clinical summary was aggregated from multiple sources. Caution should be exercised in using it in the provision of clinical care. This summary normalizes information from multiple sources, and as a consequence, information in this document may materially change the coding, format and clinical context of patient data. In addition, data may be omitted in some cases. CLINICAL DECISIONS SHOULD BE BASED ON THE PRIMARY CLINICAL RECORDS. [facility]. provides no warranty or guarantee of the accuracy or completeness of information in this document.
== END | disposition home or self-care (01) ==
LOC: OPMRI 07:15
PROVIDERS: PCP Nurse Practitioner Family; Referring Provider Anesthesiology; Visit Provider Anesthesiology
DX: M54.17 Radiculopathy, lumbosacral region (principal)
CPT/HCPCS: 72148

== ENCOUNTER → 2025-05-23 | Outpatient (CLI) | payer OTHER, SELFPAY ==
--- NOTE | 2025-05-23 15:36 | RAD_ITS ---
PROCEDURE: L/S SPINE MIN 4 VIEWS 05/23/2025 REASON FOR EXAM: FALL TECHNIQUE: Procedure Code: RADSPLS Modality: DX Procedure: L/S SPINE MIN 4 VIEWS COMPARISON: September 11, 2024 FINDINGS: Lumbar spine five views. Vertebral body height and alignment are maintained. There is mild loss of disc height from L1-4. There is mild facet sclerosis. Mineralization is normal. Vascular calcifications are visible. RAD/L/S Spine Min 4 Views IMPRESSION: No fracture or spondylolisthesis is identified in the lumbar region. Reading Location: [place]
== END | disposition home or self-care (01) ==
LOC: RAD 15:30
PROVIDERS: PCP Nurse Practitioner Family; Referring Provider Anesthesiology; Visit Provider Anesthesiology
DX: M51.26 Other intervertebral disc displacement, lumbar region (principal); W19.XXXA Unspecified fall, initial encounter
CPT/HCPCS: 72110